=== PATIENT | female | born 1990 | race Caucasian/White ===

== ENCOUNTER 2021-12-08 09:16 | Inpatient (IN) ==
[2021-12-08] MEDS ORDERED: methylPREDNISolone SOD SUC 125 MG/2 ML VIAL IV STA (09:32)
[2021-12-08 09:47] LABS: Basophils # 0.1 10*3/uL (0.0-0.2); Basophils % 0.4 % (0.0-0.8); Eosinophils # 1.5 10*3/uL (0.0-0.87); Eosinophils % 8.6 % (0.00-10.9); Hematocrit 35.2 VOL% (35.7-47.0); Hemoglobin 12.1 GM/DL (12.0-16.0); Immature Granulocytes % 1.1 %; Immature Granulocytes Absolute 0.19 #; Lymphocytes # 3.2 10*3/uL (1.4-4.0); Lymphocytes % 18.6 % (21.3-54.2); Mean Corpuscular HGB Conc 34.4 GM/DL (32-36); Mean Platelet Volume 10.9 FL (9.6-12.0); Monocytes % 5.6 % (1.7-12.7); Neutrophils % 65.7 % (38.7-73.9); Platelet Count 204 T/CUMM (130-400); Red Blood Count 4.14 MC/CUMM (3.8-5.5); Red Cell Distribution Width 13.8 % (9.3-17.3); White Blood Count 17.3 T/CUMM (4-12)
[2021-12-08] MEDS ORDERED: ALBUTEROL NEB SOLN 5 MG/ML 20 ML/BOTTLE CONT NEB SCH (10:00)
[2021-12-08 10:03] LABS: Alanine Aminotransferase 18 U/L (13-56); Albumin 2.9 G/DL (3.4-5.0); Alkaline Phosphatase 74 U/L (45-117); Aspartate Amino Transferase 14 U/L (0-37); Bilirubin,Total < 0.39 MG/DL (0.20-1.00); Blood Urea Nitrogen 6 MG/DL (7-18); Calcium 9.2 MG/DL (8.5-10.1); Carbon Dioxide 24 MMOL/L (21-32); Chloride 106 MMOL/L (98-107); Glucose 95 MG/DL (74-106); Osmolality,Calculated 270.8 MOS/KG (273-304); Potassium 3.6 MMOL/L (3.5-5.1); Sodium 137 MMOL/L (136-145)
[2021-12-08] MEDS ORDERED: ACETAMINOPHEN 500 MG TABLET PO STA (10:28)
[2021-12-08] MEDS ORDERED: ACETAMINOPHEN 500 MG TABLET ONE (10:30)
[2021-12-08] MEDS ORDERED: ALBUTEROL NEB SOLN 5 MG/ML 20 ML/BOTTLE CONT NEB STA (11:41)
[2021-12-08] MEDS: ALBUTEROL 2.5 MG/3 ML NEB RESP TX SCH ×3 (15:45→22:30)
[2021-12-08] MEDS ORDERED: BENZONATATE 100 MG CAPSULE PO PRN (15:54)
[2021-12-08] MEDS: guaiFENesin/CODEINE 5 ML LIQUID PO PRN (19:45)
[2021-12-09] MEDS: ALBUTEROL 2.5 MG/3 ML NEB RESP TX SCH ×5 (02:55→19:35)
[2021-12-09] MEDS: guaiFENesin/CODEINE 5 ML LIQUID PO PRN ×4 (04:45→18:53)
[2021-12-09 04:49] LABS: Basophils % 0.1 % (0.0-0.8); Eosinophils # 0.1 10*3/uL (0.0-0.87); Eosinophils % 0.5 % (0.00-10.9); Hematocrit 35.2 VOL% (35.7-47.0); Hemoglobin 11.9 GM/DL (12.0-16.0); Immature Granulocytes % 1.8 %; Immature Granulocytes Absolute 0.34 #; Lymphocytes # 2.3 10*3/uL (1.4-4.0); Lymphocytes % 11.8 % (21.3-54.2); Mean Corpuscular HGB Conc 33.8 GM/DL (32-36); Mean Corpuscular Volume 85.6 FL (87-102); Mean Platelet Volume 11.2 FL (9.6-12.0); Monocytes % 5.4 % (1.7-12.7); Neutrophils % 80.4 % (38.7-73.9); Platelet Count 214 T/CUMM (130-400); Red Blood Count 4.11 MC/CUMM (3.8-5.5); Red Cell Distribution Width 14.1 % (9.3-17.3)
[2021-12-09 05:09] LABS: Calcium 9.3 MG/DL (8.5-10.1); Osmolality,Calculated 275.5 MOS/KG (273-304)
[2021-12-09] MEDS ORDERED: ACETAMINOPHEN 325 MG TABLET PO PRN (09:20)
[2021-12-09] MEDS ORDERED: MONTELUKAST 10 MG TABLET PO SCH ×2 (09:30→21:00)
[2021-12-09] MEDS ORDERED: predniSONE 20 MG TABLET PO SCH (09:30)
[2021-12-09] MEDS: SODIUM CHLORIDE 0.9% 1,000 ML IV SCH ×2 (11:23→20:08)
[2021-12-09] MEDS ORDERED: AZITHROMYCIN 250 MG TABLET PO ONE (11:39)
[2021-12-09] MEDS: CETIRIZINE 10 MG TABLET PO SCH (11:54)
[2021-12-09] MEDS: SERTRALINE 100 MG TABLET PO SCH (11:54)
[2021-12-09] MEDS: MULTIVITAMIN (PRENATAL) TABLET PO SCH (11:54)
[2021-12-09] MEDS: methylPREDNISolone SOD SUC 40 MG/1 ML VIAL IV SCH ×2 (11:56→20:09)
[2021-12-09] MEDS: ASPIRIN EC 81 MG TABLET PO SCH (18:51)
[2021-12-10] MEDS: ALBUTEROL 2.5 MG/3 ML NEB RESP TX SCH ×5 (00:53→14:45)
[2021-12-10] MEDS: methylPREDNISolone SOD SUC 40 MG/1 ML VIAL IV SCH (03:21)
[2021-12-10] MEDS: guaiFENesin/CODEINE 5 ML LIQUID PO PRN ×2 (03:21→15:25)
[2021-12-10] MEDS: SODIUM CHLORIDE 0.9% 1,000 ML IV SCH ×2 (03:22→11:26)
[2021-12-10] MEDS ORDERED: AZITHROMYCIN 250 MG TABLET PO SCH (09:00)
[2021-12-10] MEDS: MULTIVITAMIN (PRENATAL) TABLET PO SCH (09:05)
[2021-12-10] MEDS: ASPIRIN EC 81 MG TABLET PO SCH (09:05)
[2021-12-10] MEDS: SERTRALINE 100 MG TABLET PO SCH (09:06)
[2021-12-10] MEDS: BUDESONIDE/FORMOTEROL 160-4.5 INHALER 6 GM INH SCH ×2 (09:06→09:08)
[2021-12-10] MEDS: CETIRIZINE 10 MG TABLET PO SCH (09:07)
[2021-12-10 12:08] VITALS: BP 131/77
== END 2021-12-10 18:32 | disposition home or self-care (01) | DRG 832 ==
LOC: N.ED 09:16 → N.EDINP 09:16 → SUATTDRO 14:21 → N.EDINP 17:11 → N.2W 17:39 → SUATTDRO 12-09 09:29
PROVIDERS: ADMIT Internal Medicine Geriatric Medicine; ATTEND Internal Medicine Geriatric Medicine

== ENCOUNTER 2022-01-02 15:50 | Inpatient (IN) ==
[2022-01-02] MEDS ORDERED: methylPREDNISolone SOD SUC 40 MG/1 ML VIAL IV STA (16:23)
[2022-01-02] MEDS ORDERED: ALBUTEROL/IPRATROPIUM 3 ML NEB RESP TX STA (16:23)
[2022-01-02 16:42] LABS: Basophils % 0.2 % (0.0-0.8); Eosinophils # 1.2 10*3/uL (0.0-0.87); Eosinophils % 9.4 % (0.00-10.9); Hematocrit 31.7 VOL% (35.7-47.0); Hemoglobin 10.6 GM/DL (12.0-16.0); Immature Granulocytes % 0.6 %; Immature Granulocytes Absolute 0.08 #; Lymphocytes # 2.2 10*3/uL (1.4-4.0); Lymphocytes % 17.6 % (21.3-54.2); Mean Corpuscular HGB Conc 33.4 GM/DL (32-36); Mean Corpuscular Volume 86.6 FL (87-102); Mean Platelet Volume 11.3 FL (9.6-12.0); Monocytes # 0.8 10*3/uL (0.11-0.8); Neutrophils % 66.2 % (38.7-73.9); Platelet Count 212 T/CUMM (130-400); Red Blood Count 3.66 MC/CUMM (3.8-5.5); Red Cell Distribution Width 13.8 % (9.3-17.3); White Blood Count 12.7 T/CUMM (4-12)
[2022-01-02 16:50] LABS: Calcium 8.6 MG/DL (8.5-10.1); Osmolality,Calculated 275.5 MOS/KG (273-304)
[2022-01-02] MEDS ORDERED: ACETAMINOPHEN 325 MG TABLET PO PRN (18:12)
[2022-01-02] MEDS ORDERED: IBUPROFEN 800 MG TABLET PO PRN (18:12)
[2022-01-02] MEDS ORDERED: ONDANSETRON 4 MG/2 ML VIAL IV PRN (18:12)
[2022-01-02] MEDS ORDERED: BISACODYL 10 MG SUPP RECTAL PRN (18:12)
[2022-01-02] MEDS ORDERED: SODIUM CHLORIDE 0.45% 1,000 ML IV SCH (18:30)
[2022-01-02] MEDS ORDERED: methylPREDNISolone SOD SUC 40 MG/1 ML VIAL IV SCH (18:30)
[2022-01-02] MEDS: cefTRIAXone 1,000 MG in SODIUM CHLORIDE 0.9% 100 ML IV SCH (18:33)
[2022-01-02] MEDS ORDERED: ALBUTEROL/IPRATROPIUM 3 ML NEB RESP TX SCH (19:00)
[2022-01-02] MEDS: ALBUTEROL 2.5 MG/3 ML NEB RESP TX SCH (19:50)
[2022-01-02] MEDS: BUDESONIDE 0.5 MG/2 ML NEB RESP TX SCH (19:50)
[2022-01-02] MEDS: DOCUSATE SODIUM 100 MG CAPSULE PO SCH (20:53)
[2022-01-02] MEDS: PANTOPRAZOLE 40 MG VIAL IV SCH (20:53)
[2022-01-02] MEDS ORDERED: MAGNESIUM HYDROXIDE SUSP 30 ML UDCUP PO PRN (21:00)
[2022-01-02] MEDS ORDERED: BUDESONIDE 0.5 MG/2 ML NEB RESP TX SCH (21:00)
[2022-01-02] MEDS ORDERED: BUDESONIDE/FORMOTEROL 160-4.5 INHALER 6 GM INH SCH (21:00)
[2022-01-02] MEDS: methylPREDNISolone SOD SUC 40 MG/1 ML VIAL IV SCH (23:52)
[2022-01-03] MEDS: ALBUTEROL 2.5 MG/3 ML NEB RESP TX SCH ×7 (03:08→23:38)
[2022-01-03] MEDS: ACETAMINOPHEN/CODEINE 300-30 MG TABLET PO PRN ×4 (03:25→22:17)
[2022-01-03] MEDS: DOCUSATE SODIUM 100 MG CAPSULE PO SCH ×3 (07:36→21:08)
[2022-01-03] MEDS: methylPREDNISolone SOD SUC 40 MG/1 ML VIAL IV SCH ×2 (07:36→16:00)
[2022-01-03] MEDS: BUDESONIDE/FORMOTEROL 160-4.5 INHALER 6 GM INH SCH ×2 (07:40→21:07)
[2022-01-03] MEDS: BUDESONIDE 0.5 MG/2 ML NEB RESP TX SCH ×2 (07:50→19:35)
[2022-01-03] MEDS: BENZONATATE 100 MG CAPSULE PO PRN (08:47)
[2022-01-03] MEDS: PANTOPRAZOLE 40 MG VIAL IV SCH ×2 (08:49→21:15)
[2022-01-03] MEDS: cefTRIAXone 1,000 MG in SODIUM CHLORIDE 0.9% 100 ML IV SCH (17:40)
[2022-01-04] MEDS: methylPREDNISolone SOD SUC 40 MG/1 ML VIAL IV SCH ×2 (00:48→08:24)
[2022-01-04] MEDS: ALBUTEROL 2.5 MG/3 ML NEB RESP TX SCH ×3 (03:05→10:54)
[2022-01-04 04:55] LABS: Basophils % 0.1 % (0.0-0.8); Eosinophils % 0.1 % (0.00-10.9); Hematocrit 32.4 VOL% (35.7-47.0); Hemoglobin 10.6 GM/DL (12.0-16.0); Immature Granulocytes % 0.8 %; Immature Granulocytes Absolute 0.09 #; Lymphocytes # 1.2 10*3/uL (1.4-4.0); Lymphocytes % 10.5 % (21.3-54.2); Mean Corpuscular HGB Conc 32.7 GM/DL (32-36); Mean Corpuscular Volume 88.8 FL (87-102); Mean Platelet Volume 11.4 FL (9.6-12.0); Monocytes # 0.5 10*3/uL (0.11-0.8); Monocytes % 4.2 % (1.7-12.7); Neutrophils % 84.3 % (38.7-73.9); Platelet Count 196 T/CUMM (130-400); Red Blood Count 3.65 MC/CUMM (3.8-5.5); Red Cell Distribution Width 14.2 % (9.3-17.3); White Blood Count 11.4 T/CUMM (4-12)
[2022-01-04 05:16] LABS: Alanine Aminotransferase 14 U/L (13-56); Albumin 2.7 G/DL (3.4-5.0); Alkaline Phosphatase 74 U/L (45-117); Aspartate Amino Transferase 6 U/L (0-37); Bilirubin,Total < 0.39 MG/DL (0.20-1.00); Blood Urea Nitrogen 6 MG/DL (7-18); Calcium 8.9 MG/DL (8.5-10.1); Carbon Dioxide 25 MMOL/L (21-32); Chloride 106 MMOL/L (98-107); Glucose 147 MG/DL (74-106); Osmolality,Calculated 273.8 MOS/KG (273-304); Potassium 3.9 MMOL/L (3.5-5.1); Sodium 137 MMOL/L (136-145); Total Protein 6.6 G/DL (6.4-8.2)
[2022-01-04] MEDS: BENZONATATE 100 MG CAPSULE PO PRN (06:16)
[2022-01-04] MEDS: BUDESONIDE 0.5 MG/2 ML NEB RESP TX SCH (07:42)
[2022-01-04] MEDS: BUDESONIDE/FORMOTEROL 160-4.5 INHALER 6 GM INH SCH (08:00)
[2022-01-04] MEDS: DOCUSATE SODIUM 100 MG CAPSULE PO SCH (08:20)
[2022-01-04] MEDS: PANTOPRAZOLE 40 MG VIAL IV SCH (09:03)
[2022-01-04 09:17] VITALS: BP 124/71
== END 2022-01-04 11:36 | disposition home or self-care (01) | DRG 832 ==
LOC: N.ED 15:50 → N.EDINP 18:12 → N.OB 18:38
PROVIDERS: ADMIT Obstetrics & Gynecology; ATTEND Obstetrics & Gynecology